=== PATIENT | female | born 1945 | race Caucasian/White ===

== ENCOUNTER → 2017-02-14 | Outpatient (CLI) | payer MEDICARE, OTHER ==
[~2017-02-14] MED LIST: ASPIRIN E.C. 8181 MG PO; ATOXIMETIN-B1 CAP PO; CALCIUM 600600 M2 PO; CARDI-OMEGA1000 MG PO; CINNAMON500 MG PO; GLUCOPHAGE500 MG/TAB PO; M2 CHROMIUM500 MCG PO; NIACIN500 M3 PO; OMEPRAZOLE40 MG PO; PAROXETINE30 MG PO; PERCOCET 325 MG1 TA2 PO; PROPRANOLOL HCL40 MG PO; TRAZADONE HYDR100 MG PO; ZOCOR 10MG10 MG PO; [UNRECOGNIZED DRUG - OTHER] PO; [UNRECOGNIZED DRUG - OTHER] PO
== END ==
LOC: MC.RAD 13:56
DX: Z12.31 Encounter for screening mammogram for malignant neoplasm of breast (principal)

== ENCOUNTER → 2018-03-13 | Outpatient (CLI) | payer MEDICARE, OTHER | LOC: MC.RAD 13:36 | DX: Z12.31 Encounter for screening mammogram for malignant neoplasm of breast (principal) ==

== ENCOUNTER → 2019-09-27 | Outpatient (CLI) | payer MEDICARE | LOC: MC.RAD 10:50 | DX: Z12.31 Encounter for screening mammogram for malignant neoplasm of breast (principal) ==

== ENCOUNTER → 2020-12-16 | Outpatient (CLI) | payer MEDICARE | LOC: MC.RAD 12:57 | DX: Z12.31 Encounter for screening mammogram for malignant neoplasm of breast (principal) ==